=== PATIENT | male | born 1995 | race Hispanic/Latino ===

== ENCOUNTER 2019-02-06 13:22 | Emergency (ER) | payer OTHER ==
[2019-02-06 13:30] VITALS: O2SAT 98
--- NOTE | 2019-02-06 14:02 | ED PDOC ---
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 Patient reports that he was asked some questions in class and thinks he was over analyzing things. He remembers having his teacher walk him to the health center when he fell to the ground holding his chest and crying. Denies chest pain, shortness of breath, head injury, and loss of consciousness. Of note patient is a poor historian as he is unclear of how the events unfolded and has some holes in his recollection. As per other witness, patient was being assisted when he just fell to the ground and started flailing his arms, but was not seizure like, and remained conscious for. The witness was able to help calm patient and get him up, but notes he then began to count numbers repeatedly while walking with his eyes closed to the health center. Also, patient would not turn left when guided, as he only wanted to turn right. Currently, patient states he feels ok and is only concerned about what his parents will think of him being in the ED. Additionally, he is reporting that he has had some suicidal ideation in the past before sleeping because it would be easier to just , but he says he has not felt this recently or currently. Shashank graves also says schools makes him stressed out, causing some anxiety and depression, however has never been officially diagnosed. He states he occasionally smokes marijuana to help ease these feels, last time being yesterday night. Otherwise denies homicidal ideation, visual hallucinations, auditory hallucinations, history of mental illness, and family history of mental illness. PMD: none provided Past Medical History Reviewed: Historical Data, Nursing Documentation, Vital Signs Vital Signs: Last Vital Signs Temp 98.1 F 02/06/19 13:25 Pulse 70 02/06/19 13:25 Resp 16 02/06/19 13:25 BP 120/79 02/06/19 13:25 Pulse Ox 98 02/06/19 13:25 - Medical History PMH: Asthma - Surgical History Surgical History: No Surg Hx - Family History Family History: States: CAD - Social History Current smoker - smoking cessation education provided: Yes (willam) Alcohol: Occasional Drugs: Cannabis (occasional, last use yesterday) - Allergies Allergies/Adverse Reactions: Allergies Allergy/AdvReac Type Severity Reaction Status Date / Time No Known Allergies Allergy Verified 02/06/19 13:25 Review of Systems ROS Statement: Except As Marked, All Systems Reviewed And Found Negative Cardiovascular: Negative for: Chest Pain Respiratory: Negative for: Shortness of Breath Neurological: Negative for: Seizures, Other (loss of consciousness) Psych: Positive for: Anxiety (and stressed), Depression. Negative for: Suicidal ideation (in the past, but not currently), Other (homicidal ideation, visual / auditory hallucinations) Physical Exam - Reviewed Nursing Documentation Reviewed: Yes Vital Signs Reviewed: Yes - Physical Exam Comments: GENERAL APPEARANCE: Patient is awake, alert, oriented x 3, in no acute distress. SKIN: Warm, dry; (-) cyanosis HEAD: (-) scalp swelling, (-) scalp tenderness. EYES: (-) conjunctival pallor, (-) scleral icterus, (-) nystagmus. ENMT: Mucous membranes moist. Airway patent: (-) stridor. NECK: (-) tenderness, (-) stiffness, (-) lymphadenopathy. HEART AND CARDIOVASCULAR: (-) irregularity; (-) murmur, (-) gallop. CHEST AND RESPIRATORY: (-) rales, (-) rhonchi, (-) wheezes; breath sounds equal. ABDOMEN: Soft, (-) distention, (-) tenderness, (-) guarding. NEURO AND PSYCH: Mental status as above. Affect: bizarre. 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 Pupils equal and reactive; EOMI; (-) facial asymmetry; tongue and uvula midline. Strength and DTRs symmetric. Normal gait. Sensation intact. - Laboratory Results Result Diagrams: 02/06/19 14:15 02/06/19 12:15 - ECG O2 Sat by Pulse Oximetry: 98 (RA) Pulse Ox Interpretation: Normal Medical Decision Making Medical Decision Making: Time: 1346 Initial Impression: psychiatric evaluation Initial Plan: --CT head without contrast --EKG --Alcohol serum --CMP --Drug screen --CBC with differential --1:1 observation for elopement risk and past SI --Accucheck --Urinalysis --Crisis evaluation pending workup results pt's father (who is a MD) arrived 14:20, reports that pt has been very stressed, aware he smokes marijuana to help, notes he has been loosing weight, pt is active, nice and healthy, 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 Pending crisis evaluation. 18:20 discussed case with crisis screener, pt is cleared for discharge by Dr. Dinh, diagnosis cannabis abuse with psychotic disorder, unspecified, they will arrange an appointment for pt to follow up, pt is cleared to go back to school I agree that this was a psychotic disorder with cannabis abuse, labs wnl, ct head normal, no signs of medical cause, pt is stable for dc Discussed results, diagnosis, treatment, return precautions and f/u with Both pt and pt's father who are understanding, ready to go home and in agreement Scribe Attestation: Documented by Alexandra Crawley, acting as a scribe for Kendall Garcia PA-C. Provider Scribe Attestation: All medical record entries made by the Scribe were at my direction and personally dictated by me. I have reviewed the chart and agree that the record accurately reflects my personal performance of the history, physical exam, medical decision making, and the department course for this patient. I have also personally directed, reviewed, and agree with the discharge instructions and disposition. Disposition - Clinical Impression Clinical Impression: Cannabis abuse with psychotic disorder, unspecified - Patient ED Disposition Is Patient to be Admitted: No Counseled Patient/Family Regarding: Studies Performed, Diagnosis, Need For Followup - Disposition Referrals: your, doctor [Other] therapist, as scheduled [Other] Disposition: Routine/Home Disposition Time: 18:23 Condition: STABLE Additional Instructions: Return to ED for new or worsening symptoms, fever >100.4, changes in behavior, changes in vision, chest pain. Follow up with your primary doctor in 1-2 days and therapist as scheduled. Thank you for letting us take care of you today. You were treated for cannabis abuse. The emergency medical care you received today was directed at your acute symptoms. If you were prescribed any medication, please fill it and take as directed. It may take several days for your symptoms to resolve. Return to the Emergency Department if your symptoms worsen, do not improve, or if you have any other problems. Please contact your doctor in 2 days for re-evaluation and follow up / or call one of the physicians/clinics you have been referred to that are listed on the Patient Visit Information form that is included in your discharge packet. Bring any paperwork you were given at discharge with you along with any medications you are taking to your follow up visit. Our treatment cannot replace ongoing medical care by a primary care provider (PCP) outside of the emergency department. Instructions: Marijuana Use and Addiction Forms: [facility] [place] (Serbian), [facility] ED School/Work Excuse Print Language: NIGERIEN - POA Present On Arrival: None Results - Diagnostic Imaging Results Radiology Results Head CT 02/06/19 13:48 IMPRESSION: Normal CT of the Head. - Lab Results Lab Results: 02/06/19 02/06/19 02/06/19 14:15 14:12 12:15 WBC 7.7 RBC 5.45 Hgb 15.1 Hct 45.6 MCV 83.5 MCH 27.7 MCHC 33.2 RDW 13.6 Plt Count 253 MPV 8.9 Neut % (Auto) 71.3 Lymph % (Auto) 17.9 L [place] % (Auto) 9.7 Eos % (Auto) 0.4 Baso % (Auto) 0.7 Neut # (Auto) 5.5 Lymph # (Auto) 1.4 [place] # (Auto) 0.7 Eos # (Auto) 0.0 Baso # (Auto) 0.1 Sodium Potassium Chloride Carbon Dioxide Anion Gap BUN Creatinine Est GFR ( Amer) Est GFR (Non-Af Amer) POC Glucose (mg/dL) 112 H Random Glucose Calcium Total Bilirubin AST ALT Alkaline Phosphatase Total Protein Albumin Globulin Albumin/Globulin Ratio Urine Color Yellow Urine Clarity Clear Urine pH 6.0 Ur Specific [place] 1.029 Urine Protein 100 Urine Glucose (UA) Neg Urine Ketones 20 Urine Blood Negative Urine Nitrate Negative Urine Bilirubin Negative Urine Urobilinogen 2.0 Ur Leukocyte Esterase Neg Urine RBC (Auto) 2 Urine Microscopic WBC 1 Urine Opiates Screen Urine Methadone Screen Ur Barbiturates Screen Ur Phencyclidine Scrn Ur Amphetamines Screen U Benzodiazepines Scrn U Oth Cocaine Metabols U Cannabinoids Screen Alcohol, Quantitative 02/06/19 02/06/19 12:15 12:15 WBC RBC Hgb Hct MCV MCH MCHC RDW Plt Count MPV Neut % (Auto) Lymph % (Auto) [place] % (Auto) Eos % (Auto) Baso % (Auto) Neut # (Auto) Lymph # (Auto) [place] # (Auto) Eos # (Auto) Baso # (Auto) Sodium 138 Potassium 4.0 Chloride 100 Carbon Dioxide 26 Anion Gap 16 BUN 18 Creatinine 1.3 Est GFR ( Amer) > 60 Est GFR (Non-Af Amer) > 60 POC Glucose (mg/dL) Random Glucose 95 Calcium 10.1 Total Bilirubin 4.0 H AST 35 ALT 42 Alkaline Phosphatase 69 Total Protein 8.1 Albumin 4.9 Globulin 3.2 Albumin/Globulin Ratio 1.6 Urine Color Urine Clarity Urine pH Ur Specific [place] Urine Protein Urine Glucose (UA) Urine Ketones Urine Blood Urine Nitrate Urine Bilirubin Urine Urobilinogen Ur Leukocyte Esterase Urine RBC (Auto) Urine Microscopic WBC Urine Opiates Screen Negative Urine Methadone Screen Negative Ur Barbiturates Screen Negative Ur Phencyclidine Scrn Negative Ur Amphetamines Screen Negative U Benzodiazepines Scrn Negative U Oth Cocaine Metabols Negative U Cannabinoids Screen Positive H Alcohol, Quantitative < 10
[2019-02-06 14:28] LABS: BASO # 0.1 K/uL (0.0-0.2); BASO % 0.7 % (0.0-2.0); EOS % 0.4 % (0.0-4.0); HEMOGLOBIN 15.1 g/dL (12.0-18.0); LYMPH # 1.4 K/uL (1.0-4.3); LYMPH % 17.9 % (20.0-40.0); MEAN CELL VOLUME 83.5 fl (80.0-94.0); MEAN CORPUSCULAR HEMOGLOBIN 27.7 pg (27.0-31.0); MEAN CORPUSCULAR HGB CONC 33.2 g/dL (33.0-37.0); MEAN PLATELET VOLUME 8.9 fl (7.2-11.7); MONO # 0.7 K/uL (0.0-0.8); MONO % 9.7 % (0.0-10.0); NEUT # 5.5 K/uL (1.8-7.0); NEUT % 71.3 % (50.0-75.0); NRBC % 0.1 % (0.0-0.0); RBC 5.45 Mil/uL (4.40-5.90); RED CELL DISTRIBUTION WIDTH 13.6 % (11.5-14.5); WHITE BLOOD COUNT 7.7 K/uL (4.8-10.8)
[2019-02-06 14:28] LABS: URINE BILIRUBIN NEGATIVE (NEGATIVE); URINE BLOOD NEGATIVE (NEGATIVE); URINE CLARITY CLEAR (Clear); URINE COLOR YELLOW (YELLOW); URINE GLUCOSE (UA) NEG (NEGATIVE); URINE LEUKOCYTE ESTERASE NEG Leu/uL (Negative); URINE PROTEIN 100 mg/dL (NEGATIVE)
[2019-02-06 14:37] LABS: ALB/GLOB RATIO 1.6 (1.0-2.1); ALBUMIN 4.9 g/dL (3.5-5.0); ALT/SGPT 42 U/L (21-72); AST/SGOT 35 U/L (17-59); BLOOD UREA NITROGEN 18 mg/dl (9-20); CALCIUM 10.1 mg/dL (8.4-10.2); GFR NON-AFRICAN AMERICAN > 60
[2019-02-06 14:45] LABS: BARBITURATES, UR NEGATIVE (NEGATIVE); BENZODIAZEPINES, UR NEGATIVE (NEGATIVE); OPIATES, UR NEGATIVE (NEGATIVE); PHENCYCLIDINE, UR NEGATIVE (NEGATIVE)
--- NOTE | 2019-02-06 16:46 | CT ---
Date of service: 02/06/2019 PROCEDURE: CT HEAD WITHOUT CONTRAST. HISTORY: COMPARISON: None available. TECHNIQUE: Axial computed tomography images were obtained through the head/brain without intravenous contrast. Radiation dose: Total exam DLP = 857.82 mGy-cm. This CT exam was performed using one or more of the following dose reduction techniques: Automated exposure control, adjustment of the mA and/or kV according to patient size, and/or use of iterative reconstruction technique. FINDINGS: HEMORRHAGE: No intracranial hemorrhage. BRAIN: No mass effect or edema. No atrophy or chronic microvascular ischemic changes. VENTRICLES: Unremarkable. No hydrocephalus. CALVARIUM: Unremarkable. PARANASAL SINUSES: Unremarkable as visualized. No significant inflammatory changes. MASTOID AIR CELLS: Unremarkable as visualized. No inflammatory changes. OTHER FINDINGS: None. IMPRESSION: Normal CT of the Head.
--- NOTE | 2019-02-06 17:07 | CARD ---
APPROVED REPORT Date of service: 02/06/2019 EKG Measurement Heart [id number] <Conclusion> Sinus bradycardia with sinus arrhythmia Voltage criteria for left ventricular hypertrophy Abnormal ECG
[2019-02-06 18:43] VITALS: BP 111/64; PULSE 78; RESP 18; TEMP 98.8
== END 2019-02-06 18:50 | disposition home or self-care (01) ==
LOC: H.ER 13:22
DX: F12.159 Cannabis abuse with psychotic disorder, unspecified (principal); F41.9 Anxiety disorder, unspecified; F32.9 Major depressive disorder, single episode, unspecified; F17.200 Nicotine dependence, unspecified, uncomplicated; S09.90XA Unspecified injury of head, initial encounter; W19.XXXA Unspecified fall, initial encounter; Y93.01 Activity, walking, marching and hiking